=== PATIENT | male | born 1965 | race Caucasian/White ===

== ENCOUNTER 2018-02-24 21:52 | Emergency (ER) | payer SELFPAY ==
[~2018-02-24] VITALS: Ht 193 cm; Wt 86.6 kg
[2018-02-24 21:56] VITALS: BP 132/79; Ht 193 cm; Wt 86.6 kg
== END 2018-02-25 00:24 | disposition left against medical advice (07) ==
LOC: ED 21:52
DX: Z53.21 Procedure and treatment not carried out due to patient leaving prior to being seen by health care provider (principal)